=== PATIENT | female | born 1945 | race Two or more races ===

== ENCOUNTER 2018-01-06 06:46 | Outpatient (CLI) | payer OTHER | END 2018-01-06 06:49 | disposition home or self-care (01) | LOC: SONOGRAMA 06:46 | DX: R59.9 Enlarged lymph nodes, unspecified (principal) ==

== ENCOUNTER 2018-04-18 08:02 | Outpatient (CLI) | payer OTHER | END 2018-04-18 08:07 | disposition home or self-care (01) | LOC: RX STUDY 08:02 | DX: R13.19 Other dysphagia (principal) ==

== ENCOUNTER → 2018-11-25 11:16 | Outpatient (CLI) | payer OTHER | END | disposition home or self-care (01) | LOC: LAB 11:16 | DX: N20.0 Calculus of kidney (principal) ==

== ENCOUNTER 2018-12-05 13:19 | Outpatient (CLI) | payer OTHER | END 2018-12-06 11:04 | disposition home or self-care (01) | LOC: NUCLEAR 13:19 | DX: G30.1 Alzheimer's disease with late onset (principal) | CPT/HCPCS: 78607; A9557 ==

== ENCOUNTER 2018-12-13 08:36 | Outpatient (CLI) | payer OTHER | END 2018-12-13 08:38 | disposition home or self-care (01) | LOC: TOM 08:36 | DX: I65.21 Occlusion and stenosis of right carotid artery (principal) | CPT/HCPCS: 70498; Q9965 ==

== ENCOUNTER 2020-07-23 13:47 | Outpatient (CLI) | payer OTHER | END 2020-07-23 13:48 | disposition home or self-care (01) | LOC: NUCLEAR 13:47 | PROVIDERS: ATTEND Psychiatry & Neurology Neurology | DX: G30.8 Other Alzheimer's disease (principal) | CPT/HCPCS: 78803; A9557 ==

== ENCOUNTER 2020-10-31 10:48 | Outpatient (CLI) | payer OTHER | END 2020-10-31 11:01 | disposition home or self-care (01) | LOC: MAMO-SONO 10:48 | PROVIDERS: ATTEND Obstetrics & Gynecology | DX: R92.8 Other abnormal and inconclusive findings on diagnostic imaging of breast (principal); N60.11 Diffuse cystic mastopathy of right breast; N60.12 Diffuse cystic mastopathy of left breast ==

== ENCOUNTER 2021-02-24 09:18 | Outpatient (CLI) | payer OTHER | END 2021-02-24 09:26 | disposition home or self-care (01) | LOC: MRI 09:18 | PROVIDERS: ATTEND Specialist | DX: G50.0 Trigeminal neuralgia (principal); G31.89 Other specified degenerative diseases of nervous system | CPT/HCPCS: 70551 ==

== ENCOUNTER 2021-10-10 09:26 | Outpatient (CLI) | payer OTHER | END 2021-10-10 09:44 | disposition home or self-care (01) | LOC: MRI 09:26 | PROVIDERS: ATTEND Specialist | DX: G50.0 Trigeminal neuralgia (principal); G31.9 Degenerative disease of nervous system, unspecified | CPT/HCPCS: 70553 ==

== ENCOUNTER 2022-09-24 15:08 | Outpatient (CLI) | payer OTHER | END 2022-09-24 15:12 | disposition home or self-care (01) | LOC: LAB 15:08 | PROVIDERS: ATTEND Radiology Diagnostic Radiology | DX: H40.019 Open angle with borderline findings, low risk, unspecified eye (principal) ==

== ENCOUNTER 2022-09-25 09:02 | Outpatient (CLI) | payer OTHER | END 2022-09-25 09:15 | disposition home or self-care (01) | LOC: MRI 09:02 | PROVIDERS: ATTEND Ophthalmology | DX: H04.011 Acute dacryoadenitis, right lacrimal gland (principal) | CPT/HCPCS: 70553; Q9965; 70543 ==

== ENCOUNTER 2025-01-05 08:23 | Outpatient (CLI) | payer OTHER | END 2025-01-05 08:38 | disposition home or self-care (01) | LOC: TOM 08:23 | DX: K62.5 Hemorrhage of anus and rectum (principal) ==